=== PATIENT | female | born 1990 | race Caucasian/White ===

== ENCOUNTER 2024-03-04 13:35 | Outpatient (CLI) | payer BC ==
[2024-03-04] MEDS ORDERED: Iopamidol 370 76% 100 ML VIAL ONE (13:45)
== END 2024-03-04 13:36 | disposition home or self-care (01) ==
LOC: BICCT 13:35
DX: R10.32 Left lower quadrant pain (principal); N83.201 Unspecified ovarian cyst, right side
CPT/HCPCS: 74177

== ENCOUNTER 2024-03-24 13:24 | Outpatient (CLI) | payer BC | END 2024-03-24 13:25 | disposition home or self-care (01) | LOC: BICRAD 13:24 | PROVIDERS: ATTEND Student in an Organized Health Care Education/Training Program | DX: M54.12 Radiculopathy, cervical region (principal); R10.32 Left lower quadrant pain; M16.12 Unilateral primary osteoarthritis, left hip; M25.752 Osteophyte, left hip | CPT/HCPCS: 72052 ==

== ENCOUNTER 2025-03-03 13:29 | Outpatient (CLI) | payer BC | END 2025-03-03 13:30 | disposition home or self-care (01) | LOC: MRI 13:29 | PROVIDERS: ATTEND Family Medicine | DX: R51.9 Headache, unspecified (principal); R42 Dizziness and giddiness | CPT/HCPCS: 70553; 76376 ==